=== PATIENT | male | born 1950 | race Caucasian/White ===

== ENCOUNTER 2016-09-20 16:28 | Inpatient (IN) | payer OTHER, MEDICARE ==
[~2016-09-20] VITALS: Ht 182.9 cm; Wt 95.6 kg
--- NOTE | ~2016-09-20 | HC ---
[facility] [place] [address] CONSULTATION Name: XENIA ORLANDO Room #: 417-I ADM IN ..#: [id number] Admission: 09/20/16 Attend Phys: Malik Thomas MD Discharge: Date of : 50 Report #: [id number] THIS REPORT FOR: //name// CC: Jose Thomas REASON FOR CONSULTATION: I was asked to evaluate concerning recurring fever in the setting of respiratory tract infection and new left elbow pain. HISTORY OF PRESENT ILLNESS: The patient is a 66-year-old with a history of Crohn's disease and chronic sinus issues. He had had a minimally productive cough for about a week followed by onset of fever, chills, more purulent-colored sputum and right-sided chest discomfort. No dyspnea. No nausea, vomiting or diarrhea. No travel. Immunizations up to date. He is a nonsmoker. He was admitted and placed on Levaquin. He has had intermittent low-grade fever up to 101 degrees. Over the last 24 hours, he has noticed acute onset of left elbow pain and swelling. He has had a history of spur in the elbow that has required steroid injections. Several times in the past, he has had pain and swelling to this degree. No other joints involved. His stools have been normal. He is on sulfasalazine for his Crohn's. He has had most of his colon resected. PAST MEDICAL AND SURGICAL HISTORY: Crohn's disease, solitary functioning kidney, hypertension, spinal stenosis, peripheral neuropathy, bilateral total hip arthroplasties, right biceps repair, appendectomy and back surgeries. MEDICATIONS: Included Levaquin. MAR was reviewed. FAMILY HISTORY: Noncontributory. SOCIAL HISTORY: He is an ex-smoker. No significant alcohol intake. Retired from the [employer]. Distal tuberculosis exposure with negative PPDs. IMMUNIZATIONS: Up to date. REVIEW OF SYSTEMS: As noted above with no dysuria, frequency or rash. PHYSICAL EXAMINATION: VITAL SIGNS: Currently afebrile, hemodynamically stable. GENERAL: He is alert and cooperative and pleasant, in no acute distress, is sitting up in his chair. SKIN: Unremarkable. LYMPH: Unremarkable. HEENT: Unremarkable. NECK: Supple. LUNGS: Crackles in the bases bilaterally. HEART: Regular, without murmur. ABDOMEN: Soft, mild tenderness in the right upper quadrant. No [facility] [address] [place] [address] CONSULTATION Name: XENIA ORLANDO Room #: 417-I [facility]#: [id number] Admission: 09/20/16 Attend Phys: Malik Thomas MD Discharge: Date of : 50 Report #: [id number] hepatosplenomegaly or mass. EXTREMITIES: Remarkable for his left elbow with olecranon swelling. Limited range of motion due to pain. LABORATORY STUDIES: Chest x-ray shows infiltrate in the superior segment in the left lower lobe. Hemoglobin 12.6, white count 12.5, platelet count 219,000, 72% segs, 13% lymphs. Sodium 133, potassium 3.9, bicarbonate of 23 and creatinine 1.8. Ultrasound of the abdomen showed renal atrophy on the right. Urinalysis unremarkable. Sputum culture, normal joelle. Blood cultures negative. CT scan of the chest, pneumonia involving the superior segment of the left lower lobe. No mediastinal or hilar adenopathy. IMPRESSION AND PLAN: Community-acquired pneumonia, left lower lobe, now with arthritis of the left elbow with olecranon bursitis. Recommend continuing antibiotic therapy. Obtain urine antigen for strep pneumo and legionella antigen. X-rays left elbow. Have orthopedic surgery evaluate for possible aspiration. I am suspecting the right upper quadrant tenderness is more musculoskeletal in nature due to his coughing. We will need to ensure that his chest x-ray does clear. <ELECTRONICALLY SIGNED> By: Willi Feldman MD 09/26/16 0935 [id number] Willi Feldman MD /nt
--- NOTE | ~2016-09-20 | H ---
[facility] [place] [address] HISTORY AND PHYSICAL Name: XENIA ORLANDO Room #: 431-P ADM IN .R.#: [id number] Admission: 09/20/16 Attend Phys: Malik Thomas MD Discharge: Date of : 50 Report #: [id number] THIS REPORT FOR: //name// CC: Jose Thomas ATTENDING PHYSICIAN: Malik Thomas MD PRIMARY CARE PHYSICIAN: Jose Peña MD. CHIEF COMPLAINT: Fever and cough. HISTORY OF PRESENT ILLNESS: The patient is a 66-year-old male who says he has not been feeling well over the last week. He has had a cough, has been producing some whitish colored sputum. His cough is increasing infrequently. He has been running low grade temps for the last 2 days, but today he had a temperature up to 103 at home. He was febrile in the ER upon arrival. He is having some chest pain only when he coughs all over his chest, but he denies any recent exertional chest pain, denies any history of coronary artery disease. He denies any nausea, vomiting or diarrhea. He is using some Mucinex at home, which really has not improved his cough. He has had pneumonia in the past, which symptoms has felt similar. Here in the ER, he was diagnosed with pneumonia and has been admitted for further treatment. PAST MEDICAL HISTORY: Crohn's disease, one functioning kidney, hypertension, chronic kidney disease stage 3, GERD, spinal stenosis, and peripheral neuropathy. PAST SURGICAL HISTORY: Bilateral total hip replacement, colon resection due a perforation with colostomy with subsequent colostomy take down, right bicep repair, bilateral eyelid surgery, back surgery times 2 and an appendectomy. ALLERGIES: PENICILLIN. HOME MEDICATIONS: Carvedilol 25 mg b.i.d., amlodipine 10 mg daily, multivitamin daily, sulfasalazine 1000 mg t.i.d., Avapro 300 mg daily, Demadex 20 mg daily, allopurinol 100 mg daily, Flonase daily, ibuprofen 200 mg b.i.d., Symbicort b.i.d., guaifenesin 12 mg b.i.d., omeprazole 20 mg daily, Sis 180 mg daily, Neurontin 300 mg at bedtime, folic acid daily and Colace 100 mg b.i.d. SOCIAL HISTORY: The patient is an ex-smoker, having quit 25 years ago. He lives at home with his . He drinks alcohol rarely. Denies any drug use. FAMILY HISTORY: His father had alpha trypsin deficiency. His mother is alive and healthy. REVIEW OF SYSTEMS: Twelve point review of systems was reviewed with the [address] [address] HISTORY AND PHYSICAL Name: DARIONXENIA ECHAVARRIA Room #: 431-P [facility] [place] IN M.R.#: [id number] Admission: 09/20/16 Attend Phys: Malik Thomas MD Discharge: Date of : 50 Report #: [id number] patient, otherwise negative unless stated in the HPI. PHYSICAL EXAMINATION: GENERAL: The patient is an alert male in no acute distress. VITAL SIGNS: Temperature is 38.8, heart rate 100, respirations 18, blood pressure is 162/88, oxygen 95% on room air. HEENT: PERRLA. Sclerae is nonicteric. Oral mucosa is pink and moist. NECK: Supple, no JVD noted. CARDIAC: Normal S1, S2. No murmurs, rubs or gallops. RESPIRATORY: Breath sounds are clear bilaterally, diminished in the bases. Breathing is nonlabored. He does have a frequent nonproductive cough. ABDOMEN: Soft, round, nontender, nondistended with positive bowel sounds. VASCULAR: No edema noted. Pedal pulses are 2+. NEUROLOGIC: The patient is alert and oriented times 3. Speech is clear. He is moving all extremities equally. No focal neuro deficits noted. LABS AND DIAGNOSTICS: WBC is 20.8, hemoglobin 13.6, platelets 174. Sodium 135, potassium 4.2, BUN 24, creatinine 1.9. Glucose 124. Lactate is 1.4. Troponins negative. Chest x-ray showed some mild prominence of the left hilum. CT of the chest showed dense pneumonitis in the superior segment of the left lower lobe region, the density is seen on the lower left hilum on earlier chest film. There is atrophic right kidney and compensatory hypertrophy of the left kidney. ASSESSMENT AND PLAN: 1. Sepsis due to community acquired pneumonia. Blood cultures have been drawn. We will try to obtain the sputum specimen, check strep and legionella agents. Continue with Rocephin and Zithromax. Add Mucinex and continue supportive care for fevers. 2. Chronic kidney disease stage 3 with one atrophic kidney. His baseline creatinine is reported as 1.8-1.9. Creatinine is stable. Follow labs. 3. Hypertension. Blood pressure is stable, continue home meds and monitor. 4. Deep venous thrombosis prophylaxis. Place SCDs. We will continue to follow the patient closely throughout the hospitalization and make changes based on clinical status. <ELECTRONICALLY SIGNED> By: MARYAN Sadler 09/22/16 0615 0830 0925 MARYAN Sadler /nt
--- NOTE | ~2016-09-20 | EKG ---
[address] [place] [address] ELECTROCARDIOGRAM REPORT Name: DARIONXENIA Mor Room #: 431-P ADM IN M.R.#: [id number] Admission: 09/20/16 Attend Phys: Malik Thomas MD Discharge: Date of : 50 Report #: [id number] THIS REPORT FOR: //name// [facility] ED Test Date: 2016-09-20 Test Time: 16:43:10 Pat Name: XENIA ORLANDO Department: Room: [facility] Gender: M Supervisor Color Paste Mixing: Mikhail LOCKETT : 1950 Requested By: Almas Guillen Order Number: [id number] MD: Dakotah Díaz Measurements Intervals Jerome Rate: 96 P: 2 NC: 165 QRS: 22 QRSD: 87 T: 37 QT: 332 QTc: 420 Interpretive Statements Sinus rhythm Otherwise normal tracing No previous ECG available for comparison Electronically Signed On 09-21-2016 8:47:03 CDT by Dakotah Díaz [email or web address] <ELECTRONICALLY SIGNED> By: Dakotah Díaz MD, [facility] 09/21/16 0847 1643 1643 Dakotah Díaz MD, FACC /EPI
[~2016-09-20 16:28] MED LIST: ACETAMINOPHEN-120 ML PO; ALLEGRA ALLERG180 MG PO; AMLODIPINE BESY10 MG PO; APAP500 PO; AVAPRO300 MG PO; AZULFIDINE PO; CARVEDILOL25 MG PO; CENTRUM COMPLE1 EACH PO; CENTRUM SILVER1 EAC2 PO; CIPRO250 M1 PO; COUMADIN 2 MG TA2 M1; COUMADIN 5 MG TA5 M1 PO; DEMADEX10 MG PO; DOCUSATE SODIU100 MG PO; FIBER THERAPY500 MG PO; FLOMAX0.4 MG PO; FLONASE 0.05%50 MCG NASAL; FOLIC ACID 40400 MCG PO; HYDROCODONE-APA1 TA1 PO; MICARDIS 80 MG80 MG PO; MOBIC7.5 M1 PO; MOBIC7.5 MG PO; NEURONTIN300 MG PO; OMEPRAZOLE20 M2 PO; PERCOCET 10-321 EACH PO; POTASSIUM99 M1 PO; PREDNISONE 10 M10 M1; PREDNISONE50 MG PO; SULFASALAZINE500 M4 PO; SYMBICORT160 MCG/4. INH; TRAMADOL 50 MG50 MG PO; VOLTAREN GEL 1100 G1 TOP; VOLTAREN GEL 1100 G2 TOP; XARELTO10 MG PO; ZPAK PO
[2016-09-20 16:37] VITALS: BP 162/88
[2016-09-20] MEDS ORDERED: ALLOPURINOL 10100 M1 PO (18:47)
[2016-09-20] MEDS ORDERED: IBUPROFEN 200200 M1 PO (18:47)
[2016-09-20] MEDS ORDERED: FLONASE 0.05%50 MCG NASAL (18:47)
[2016-09-20] MEDS ORDERED: AZULFIDINE500 M1 PO (18:48)
[2016-09-20] MEDS ORDERED: SYMBICORT160 MCG/4. INH (18:49)
[2016-09-20] MEDS ORDERED: MUCINEX TA600 MG/TA2 PO (18:50)
[2016-09-20 19:12] LABS: HEMATOCRIT 40.6 % (42.0-52.0); HEMOGLOBIN 13.6 gm/dL (14.0-18.0); MCH 32.6 pg (26.0-34.0); MCHC 33.6 g/dL (28.0-37.0); MCV 97.1 fL (80.0-100.0); PLATELET COUNT 174 thou/uL (150-400); RBC 4.18 mil/uL (4.50-6.00); RDW 14.8 % (10.5-14.5); WBC 20.8 thou/uL (4.0-11.0)
[2016-09-20 19:16] LABS: MANUAL DIFF YES
[2016-09-20 19:21] LABS: ANION GAP 10 mmol/L (7-16); BUN 24 mg/dL (7-18); CALCIUM 9.4 mg/dL (8.5-10.1); CHLORIDE 99 mmol/L (98-107); CO2 26 mmol/L (21-32); CREATININE 1.9 mg/dL (0.7-1.3); GLUCOSE 124 mg/dL (74-106); POTASSIUM 4.2 mmol/L (3.5-5.1); SODIUM 135 mmol/L (136-145)
[2016-09-20 19:29] LABS: TROPONIN-I < 0.04 ng/mL (<0.04-0.07)
[2016-09-20 19:48] LABS: ABSOLUTE NEUTROPHILS 16.4 thou/uL (1.4-8.2); ANISOCYTOSIS 1+; POLYCHROMASIA OCCASIONAL; TOTAL CELL COUNT 100
[2016-09-20 21:20] VITALS: BP 171/87
[2016-09-21 04:00] VITALS: BP 137/71
[2016-09-21 07:20] LABS: HEMOGLOBIN 12.2 gm/dL (14.0-18.0); MCH 32.5 pg (26.0-34.0); MCHC 33.1 g/dL (28.0-37.0); MCV 98.1 fL (80.0-100.0); RBC 3.77 mil/uL (4.50-6.00); RDW 14.9 % (10.5-14.5); WBC 17.3 thou/uL (4.0-11.0)
[2016-09-21 07:33] LABS: CALCIUM 8.9 mg/dL (8.5-10.1); CREATININE 1.8 mg/dL (0.7-1.3); POTASSIUM 3.8 mmol/L (3.5-5.1)
[2016-09-21 07:34] VITALS: BP 131/72
[2016-09-21 15:27] VITALS: BP 141/72
[2016-09-21 20:30] VITALS: BP 121/69
[2016-09-21 21:50] VITALS: BP 135/72
[2016-09-22 04:30] VITALS: BP 127/68
[2016-09-22 08:00] VITALS: BP 148/83
[2016-09-22 12:06] VITALS: BP 133/65
[2016-09-22 15:50] VITALS: BP 129/72
[2016-09-22 20:00] VITALS: BP 129/83
[2016-09-23 04:00] VITALS: BP 144/80
[2016-09-23 06:07] LABS: HEMATOCRIT 38.3 % (42.0-52.0); HEMOGLOBIN 12.6 gm/dL (14.0-18.0); MCH 32.2 pg (26.0-34.0); MCV 97.5 fL (80.0-100.0); RBC 3.92 mil/uL (4.50-6.00); RDW 14.8 % (10.5-14.5); WBC 14.1 thou/uL (4.0-11.0)
[2016-09-23 06:16] LABS: CALCIUM 9.4 mg/dL (8.5-10.1); CREATININE 1.6 mg/dL (0.7-1.3); POTASSIUM 4.2 mmol/L (3.5-5.1)
[2016-09-23 07:19] VITALS: BP 154/87
[2016-09-23 12:50] LABS: URINE BILIRUBIN NEGATIVE (Negative); URINE BLOOD NEGATIVE (Negative); URINE COLOR YELLOW; URINE GLUCOSE-RANDOM* NEGATIVE (Negative); URINE KETONES NEGATIVE (Negative); URINE LEUKOCYTES-REFLEX NEGATIVE (Negative); URINE PROTEIN (DIPSTICK) TRACE (Negative); URINE UROBILINOGEN 0.2 E.U./dl (0.2-1.0)
[2016-09-23 15:33] VITALS: BP 154/89
[2016-09-23 20:00] VITALS: BP 128/62
[2016-09-24 04:00] VITALS: BP 145/79
[2016-09-24 07:59] VITALS: BP 152/86
[2016-09-24 12:20] VITALS: BP 123/78
[2016-09-24 15:29] VITALS: BP 135/81
[2016-09-24 19:44] VITALS: BP 136/80
[2016-09-25 04:00] VITALS: BP 123/69
[2016-09-25 05:19] LABS: HEMATOCRIT 37.7 % (42.0-52.0); HEMOGLOBIN 12.6 gm/dL (14.0-18.0); MCH 32.7 pg (26.0-34.0); MCHC 33.5 g/dL (28.0-37.0); MCV 97.6 fL (80.0-100.0); PLATELET COUNT 219 thou/uL (150-400); RBC 3.86 mil/uL (4.50-6.00); RDW 14.7 % (10.5-14.5); WBC 12.5 thou/uL (4.0-11.0)
[2016-09-25 05:27] LABS: MANUAL DIFF YES
[2016-09-25 05:32] LABS: CREATININE 1.8 mg/dL (0.7-1.3); POTASSIUM 3.9 mmol/L (3.5-5.1)
[2016-09-25 07:25] VITALS: BP 132/79
[2016-09-25 08:27] LABS: TOTAL CELL COUNT 100
[2016-09-25 16:19] VITALS: BP 118/79
[2016-09-25 20:00] VITALS: BP 130/84
[2016-09-26 03:49] LABS: ABSOLUTE NEUTROPHILS 9.4 thou/uL (1.4-8.2); BASOPHILS 0.3 % (0.0-2.0); EOSINOPHILS 2.4 % (0.0-3.0); HEMATOCRIT 38.2 % (42.0-52.0); HEMOGLOBIN 12.5 gm/dL (14.0-18.0); LYMPHOCYTES 14.8 % (24.0-44.0); MCH 32.2 pg (26.0-34.0); MCHC 32.8 g/dL (28.0-37.0); MCV 98.1 fL (80.0-100.0); PLATELET COUNT 250 thou/uL (150-400); POLYS 71.5 % (36.0-66.0); RBC 3.89 mil/uL (4.50-6.00); RDW 14.4 % (10.5-14.5); WBC 13.2 thou/uL (4.0-11.0)
[2016-09-26 04:06] LABS: CALCIUM 9.2 mg/dL (8.5-10.1); CREATININE 2.1 mg/dL (0.7-1.3); POTASSIUM 3.8 mmol/L (3.5-5.1)
[2016-09-26 04:07] LABS: MANUAL DIFF NO
[2016-09-26 04:30] VITALS: BP 126/76
[2016-09-26 07:13] VITALS: BP 125/78
[2016-09-26] MEDS ORDERED: LEVAQUIN 500 M500 M1 PO (14:30)
[2016-09-26 15:09] VITALS: BP 125/78
[2016-09-27 21:08] LABS: INFLUENZA B Negative (Negative); METAPNEUMOVIRUS Negative (Negative)
== END 2016-09-26 15:35 | disposition home or self-care (01) | DRG 193 ==
LOC: ER 16:28 → 4E 20:40 → EROBS 20:40 → 4E 22:09
PROVIDERS: Emergency Medicine; Family Medicine; Nurse Practitioner Acute Care
DX: J18.9 Pneumonia, unspecified organism (principal); N17.0 Acute kidney failure with tubular necrosis; K50.90 Crohn's disease, unspecified, without complications; I12.9 Hypertensive chronic kidney disease with stage 1 through stage 4 chronic kidney disease, or unspecified chronic kidney disease; K21.9 Gastro-esophageal reflux disease without esophagitis; G62.9 Polyneuropathy, unspecified; Z96.643 Presence of artificial hip joint, bilateral; M70.22 Olecranon bursitis, left elbow; N18.3 Chronic kidney disease, stage 3 (moderate); Z84.89 Family history of other specified conditions; Z93.3 Colostomy status; Z90.49 Acquired absence of other specified parts of digestive tract; Z87.891 Personal history of nicotine dependence; Z88.0 Allergy status to penicillin
CPT/HCPCS: 10183